=== PATIENT | female | born 1960 | race Caucasian/White ===

== ENCOUNTER 2021-08-17 10:02 | Emergency (ER) | payer OTHER, SELFPAY ==
--- NOTE | ~2021-08-17 | XR_ITS ---
XR knee RT min 4V 08/17/2021 10:25 Indication: Right knee pain. Twisting injury. Procedure: 4 views right knee Comparison: 02/11/2018 Findings: There is severe tricompartment osteoarthritis of the right knee. No fracture, subluxation o r dislocation. No significant joint effusion. No foreign body. Impression: 1: Severe osteoarthritis of the right knee. 2: No acute fracture. Reviewed, dictated and finalized at location A. Impression: 1: Severe osteoarthritis of the right knee. 2: No acute fracture.
[2021-08-17 10:14] VITALS: BP 151/73; PULSE 77; RESP 16; TEMP 36.7; O2SAT 100
--- NOTE | 2021-08-17 10:38 | ED.LOWEXIN ---
HPI - Extremity Injury (Lower) General Chief Complaint: Extremity Injury, Lower Stated Complaint: right knee pain Time Seen by Provider: 08/17/21 10:30 Source: patient Mode of arrival: ambulatory Limitations: no limitations History of Present Illness HPI Narrative: 60 yo F presents with c/o R knee pain for 3 days. Was walking through yard and stepped in a hole. States R knee went forward and overextended . did not fall completely to the ground. has been taking ibuprofen and tylenol for pain. works 12 hr shifts and has not had time to rest and elevate knee. ambulatory with limping gait. is aware she has arthritis to both knees, needs knee replacement bilaterally. All systes reviewed and negative except as noted above. Related Data Allergies Allergy/AdvReac Type Severity Reaction Status Date / Time No Known Allergies Allergy Unknown Unverified 09/13/14 13:21 Review of Systems Review of Systems: CONSTITUTIONAL: Denies fever, chills, or sweats. EYES: Denies visual changes, redness, or discharge. ENT: Denies rhinorrhea, congestion, sore throat, or otalgia. CARDIOVASCULAR: Denies chest pain, palpitations, or edema. RESPIRATORY: Denies cough or dyspnea. GASTROINTESTINAL: Denies abdominal pain, nausea, vomiting, or diarrhea. GENITOURINARY: Denies dysuria or hematuria. SKIN: Denies rash or itching. MUSCULOSKELETAL: Denies back pain, joint pain, or myalgia. Reports right knee pain. NEUROLOGIC: Denies headache, numbness, or weakness. PSYCHIATRIC: Denies anxiety or depression. All other systems reviewed are negative, except as documented in HPI. PMFSH Comments At time of signature, agree with nursing past medical, surgical, social and family history. There is no relevant family history pertinent to the presenting complaint. Exam Narrative: GENERAL: This is a well-nourished, well-developed patient, in no apparent distress. HEAD: normocephalic, atraumatic. EYES: PERRL. Sclera clear/white. Vision is grossly intact. EARS: External ears normal NOSE: External nose normal NECK: Neck supple, non-tender without lymphadenopathy, masses or thyromegaly. CARDIOVASCULAR: Regular rate and rhythm without murmurs, gallops, or rubs. RESPIRATORY: Clear to auscultation. Breath sounds equal bilaterally. No wheezes, rales, or rhonchi. SKIN: warm, Dry, intact with no suspicious lesions or rash, good texture and turgor. NEURO: awake, alert, and oriented to person, place and time. There were no obvious focal neurologic abnormalities. EXTREMITIES: mild swelling to R knee. tenderness to patellar tendon. neg anterior/posterior drawer test. Course Course Level of Care: Express Care Visit Vital Signs Vital signs: Vital Signs Temperature 36.7 C 08/17/21 10:14 Pulse Rate 77 08/17/21 10:14 Respiratory Rate 16 08/17/21 10:14 Blood Pressure 151/73 H 08/17/21 10:14 Pulse Oximetry 100 08/17/21 10:14 Oxygen Delivery Room Air 08/17/21 10:14 Temperature 36.7 C 08/17/21 10:14 Pulse Rate 77 08/17/21 10:14 Respiratory Rate 16 08/17/21 10:14 Blood Pressure 151/73 H 08/17/21 10:14 Pulse Oximetry 100 08/17/21 10:14 Oxygen Delivery Room Air 08/17/21 10:14 reviewed MDM - Extremity Injury (Lower) MDM Narrative Medical decision making narrative: discussed x-ray results with pt. recommend she continue ibuprofen and tylenol, ice and heat. pt requesting a topical pain medication. rx diclofenac. recommend follow up with PCP in 2 to 3 wks if pain not improving. Patient is aware of diagnosis, understands and agrees to treatment plan. Anticipatory guidance given. Patient agrees to follow-up as directed and is aware of reasons to seek care at the emergency department. Portions of this record may have been created with voice recognition software Differential Diagnosis Differential diagnosis: Likely other (Right knee sprain, right knee effusion) Imaging Data My impression: Agree with radiologist Radiologist's impression:
== END 2021-08-17 10:59 | disposition home or self-care (01) ==
PROVIDERS: Emergency Provider Nurse Practitioner Family; PCP Internal Medicine
DX: S83.91XA Sprain of unspecified site of right knee, initial encounter (principal); X50.9XXA Other and unspecified overexertion or strenuous movements or postures, initial encounter; M17.0 Bilateral primary osteoarthritis of knee
CPT/HCPCS: 73564; 99213; G0463

== ENCOUNTER 2022-10-05 08:41 | Emergency (ER) | payer OTHER, SELFPAY ==
--- NOTE | ~2022-10-05 | XR_ITS ---
EXAMINATION: XR finger 1st RT min 2V DATE: 10/05/2022 09:04 INDICATION: Right thumb pain. TECHNIQUE: 3 views of right thumb were obtained. COMPARISON: None. FINDINGS: Bone alignment is normal. No fracture. There is mild osteoarthritis of first carpometacarpa l joint. There is a dystrophic calcification radial to the carpus. IMPRESSION: 1. Mild osteoarthritis of first carpometacarpal joint. Reviewed, dictated and finalized at location A.
[2022-10-05 08:48] VITALS: BP 134/86; PULSE 73; RESP 16; TEMP 36.3; O2SAT 100
--- NOTE | 2022-10-05 08:48 | ED.GENADULT ---
HPI - General Adult General Chief complaint: Unspecified Stated complaint: Thumb Pain Right Hand Time Seen by Provider: 10/05/22 08:49 Source: patient, RN notes reviewed and old records reviewed Mode of arrival: ambulatory Limitations: no limitations History of Present Illness HPI narrative: 61-year-old female presents to the [facility] with complaints right thumb pain for 2 months. Swelling noted at the base of the thumb. States that she brought a new property, has been weed whacking. Treatment prior to arrival includes arthritis cream Patient denies past medical history Onset (ago): month(s) (2) Location: right and upper extremity (Thumb) Treatments prior to arrival: other ( arthritis cream ) Related Data Allergies Allergy/AdvReac Type Severity Reaction Status Date / Time No Known Allergies Allergy Unknown Verified 10/05/22 08:57 Review of Systems Review of Systems: All systems reviewed & are unremarkable except as noted in HPI and below Constitutional: Constitutional: Reports no additional constitutional complaints Eyes: Eyes: Reports no additional eye complaints ENT: Reports system reviewed and no additional complaints, except as documented Cardiovascular: Cardiovascular: Reports no additional cardiovascular complaints, Denies chest pain and Denies dyspnea Respiratory: Respiratory: Reports no additional respiratory complaints, Denies chest congestion, Denies cough and Denies dyspnea Gastrointestinal: Gastrointestinal: Reports no additional gastrointestinal complaints, Denies abdominal pain, Denies nausea and Denies vomiting Musculoskeletal: Musculoskeletal: Reports as per HPI and Reports arthralgias (Right thumb pain) Integumentary/Breasts: Skin/Breast: Reports system reviewed and no additional complaints, except as docu Neurologic: Reports system reviewed and no additional complaints, except as documented Psychiatric: Psychiatric: Reports no additional psychiatric complaints Allergic/Immunologic: Allergic/Immunologic: Reports no additional allergic/immunologic complaints PMF Past Medical History Medical History (Updated 10/05/22 @ 09:17 by Merced Liu APRN) Patient denies medical problems Surgical History Surgical History (Updated 10/05/22 @ 08:56 by Merced Liu APRN) History of History of tonsillectomy Comments At the time of my signature, I reviewed and agree with the nursing past medical, surgical, social, and family history. There is no relevant family history pertinent to the patient complaint. Exam Const: General: cooperative, healthy appearing, comfortable, no acute distress, well developed, alert and well nourished Nutritional Appearance: well nourished Orientation/consciousness: patient oriented x3 Limitations: no limitations HENMT: Head: normal to inspection Ears: hearing grossly normal bilaterally and external ears normal Face/Nose/Sinus: Normal external nose present, Normal nares present, Normal nasal mucous membranes and turbinates present and normal facial exam Face and sinus: normal facial exam Mouth: Yes lip normal Eyes: General: appearance normal, both eyes and all related structures Alignment and Position: alignment normal Periorbital: periorbital findings normal Pupils: Equal, round and reactive pupils present EOM: EOMs intact bilaterally Neck: Neck: normal visual inspection, full ROM, no lymphadenopathy and no meningeal signs Chest: Chest palpation & inspection: normal inspection of the chest Resp: Effort & Inspection: normal respiratory effort and able to speak in complete sentences Cardio: Rate: regular rate Rhythm: regular rhythm Back/Spine/Pelvis: Cervical Spine: cervical ROM normal Skin: General skin exam: normal color and no rashes or lesions noted Lesions: no lesions Rashes: no rashes Wounds: no wounds Neuro: General: patient oriented x3, gait normal, tone normal, moves all extremities and no meningeal signs Cranial nerves: Yes Equ
== END 2022-10-05 09:25 | disposition home or self-care (01) ==
PROVIDERS: Emergency Provider Nurse Practitioner; PCP Internal Medicine
DX: M18.11 Unilateral primary osteoarthritis of first carpometacarpal joint, right hand (principal); M17.0 Bilateral primary osteoarthritis of knee
CPT/HCPCS: 73140; 99213; G0463

== ENCOUNTER 2024-11-08 07:39 | Outpatient (CLI) | payer OTHER, SELFPAY ==
[2024-11-08 08:30] LABS: Hematocrit 36.7 % (37.0-47.0); Hemoglobin 11.9 g/dL (12.0-15.0); Mean Corpuscular HGB Conc 32.4 g/dl (32-36); Mean Corpuscular Hemoglobin 28.7 pg (26-34); Mean Corpuscular Volume 88.4 fl (80-100); Platelet Count Result 315 k/mm3 (150-375); Red Blood Count 4.15 M/mm3 (4.2-5.4); White Blood Count 6.3 K/mm3 (4.5-10.0)
[2024-11-08 08:53] LABS: Hemoglobin A1C 5.2 % (<5.7)
[2024-11-08 08:56] LABS: Alanine Aminotransferase 29 U/L (6-35); Albumin Level 4.4 g/dL (3.5-5.1); Alkaline Phosphatase 100 U/L (38-126); Anion Gap 9 mmol/L (4-12); Aspartate Amino Transferase 26 U/L (14-36); Bilirubin,Total 1.5 mg/dL (0.2-1.3); Blood Urea Nitrogen 31 mg/dL (7-17); Calcium 8.7 mg/dL (8.4-10.2); Carbon Dioxide 27 mmol/L (22-30); Chloride 101 mmol/L (98-107); Cholesterol 205 mg/dL (0-200); Estimated Glomerular Filt Rate > 60; Glucose 101 mg/dL (65-110); HDL Direct 79 mg/dL; Potassium 3.8 mmol/L (3.4-5.0); Sodium 137 mmol/L (137-145); Total Protein 7.6 g/dL (6.3-8.2); Triglycerides 53 mg/dL (<150)
[2024-11-08 09:16] LABS: Thyroid Stimulating Hormone Reflex 8.130 uIU/mL (0.465-4.68)
[2024-11-08 09:54] LABS: Free T4 Free Thyroxine Reflex 0.92 ng/dL (0.78-2.19)
[2024-11-08 10:44] LABS: Total Triiodothyronine (T3) 0.85 NG/ML (0.82-1.58)
== END 2024-11-08 07:40 | disposition home or self-care (01) ==
LOC: ANHIMG 07:42 → ANHLAB 08:09
PROVIDERS: PCP Nurse Practitioner Family; Visit Provider Nurse Practitioner Family
DX: Z00.00 Encounter for general adult medical examination without abnormal findings (principal); Z13.1 Encounter for screening for diabetes mellitus; Z78.0 Asymptomatic menopausal state; H35.30 Unspecified macular degeneration; E66.9 Obesity, unspecified; Z76.89 Persons encountering health services in other specified circumstances
CPT/HCPCS: 36415; 80053; 80061; 82306; 83036; 84439; 84443; 84480; 85027